=== PATIENT | female | born 1975 | race Caucasian/White ===

== ENCOUNTER 2021-01-15 13:59 | Emergency (ER) | payer OTHER ==
[2021-01-15 15:50] LABS: HEMOGLOBIN 15.9 gm/dl (12.3-15.3); RED BLOOD COUNT 4.78 M/UL (4.00-5.10); WHITE BLOOD COUNT 7.8 K/UL (4.5-11.0)
[2021-01-15 16:11] LABS: BUN/CREATININE RATIO 10 (0-10)
[2021-01-15] MEDS ORDERED: ONDANSETRON ODT4 MG SL (18:15)
[2021-01-15] MEDS ORDERED: IMITREX50 MG PO (18:15)
== END 2021-01-15 21:47 | disposition home or self-care (01) ==
LOC: ER1 13:59
PROVIDERS: Physician Assistant
DX: R07.89 Other chest pain (principal); G43.909 Migraine, unspecified, not intractable, without status migrainosus; R20.2 Paresthesia of skin; J44.9 Chronic obstructive pulmonary disease, unspecified; F17.200 Nicotine dependence, unspecified, uncomplicated; Z20.822 Contact with and (suspected) exposure to COVID-19; Z88.5 Allergy status to narcotic agent; Z88.0 Allergy status to penicillin; Z88.8 Allergy status to other drugs, medicaments and biological substances; Z79.899 Other long term (current) drug therapy
CPT/HCPCS: 70450; 71045; 80053; 82550; 82553; 83874; 84484; 85025; 93005; 96374; 96375; 99285; J1885; J2765; Q0177; U0003